=== PATIENT | male | born 1980 | race Asian ===

== ENCOUNTER 2024-02-07 19:26 | Emergency (ER) | payer OTHER ==
[~2024-02-07] VITALS: Ht 162.6 cm; Wt 70.0 kg
[2024-02-07] MEDS ORDERED: ACETAMINOPHEN 325 MG TAB PO ONE (19:45)
[2024-02-07] MEDS ORDERED: SODIUM CHLORIDE 0.9% 1,000 ML IV ONE (19:45)
[2024-02-07] MEDS ORDERED: MORPHINE SULFATE 4 MG/ML VIAL IV ONE (19:45)
[2024-02-07 19:53] LABS: HEMATOCRIT 45.5 % (35.0-50.0); HEMOGLOBIN 15.1 g/dL (12.0-18.0); MCH 29.1 (27-36); MCHC 33.3 g/dl (30-36); MCV 87.3 fl (81-99); PLATELET COUNT 431 K/uL (140-440); RBC 5.21 M/ul (4.3-5.7); RDW 13.8 (10.5-15.0)
[2024-02-07 20:02] LABS: INR 1.03 (0.80-1.30); PROTIME 13.1 Sec (11.2-14.2)
[2024-02-07 20:09] LABS: BANDS, MANUAL DIFF 1; BASOPHILS, MANUAL DIFF 1; LYMPHOCYTES, MANUAL DIFF 15; MONOCYTES, MANUAL DIFF 4; NEUTROPHILS, MANUAL DIFF 79
[2024-02-07 20:10] LABS: ALBUMIN/GLOBULIN RATIO 0.65 (1.1-2.4); ANION GAP 16.2 (7-21); BILIRUBIN, TOTAL 2.4 ng/dL (0.2-1.0); BUN/CREATININE RATIO 14.61 (6.0-28.6); CALCIUM 8.3 mg/dL (8.5-10.1); CREATININE, SERUM 1.3 mg/dL (0.70-1.30); POTASSIUM 4.2 mmol/L (3.5-5.1); PROTEIN, TOTAL 7.6 g/dL (6.4-8.2)
[2024-02-07 20:13] LABS: LACTIC ACID, BLOOD 1.5 mmol/L (0.4-2.0)
[2024-02-07] MEDS ORDERED: CEFTRIAXONE/SODIUM CHLORIDE 2 GM/100 ML PIGGYBACK IV ONE (20:15)
[2024-02-07] MEDS ORDERED: COLCHICINE 0.6 MG TAB PO ONE ×2 (20:30→23:15)
[2024-02-07 20:53] LABS: BILIRUBIN, URINE NEGATIVE (negative); BLOOD/HGB, URINE SMALL (Negative); KETONE, URINE NEGATIVE (Negative); LEUK ESTERASE, URINE NEGATIVE (negative); NITRITE, URINE NEGATIVE (negative)
[2024-02-07 20:58] LABS: EPITHELIAL CELLS, URINE SQUAMOUS 1+ /lpf (0-1+)
[2024-02-07 20:59] LABS: BACTERIA, URINE RARE /hpf (negative); CASTS, URINE NONE SEEN \\lpf; CRYSTALS, URINE NONE SEEN (0-1+); REFLEX CULTURE, URINE No (No)
[2024-02-07 22:23] LABS: N. GONORRRHOEAE BY PCR NOT DETECTED (NOT DETECT)
[2024-02-07 22:41] LABS: VISCOSITY, SYNOVIAL FLUID VISCOUS
[2024-02-07 22:42] LABS: RBC, SYOVIAL FLUID 1222; WBC, SYNOVIAL FLUID 45555
[2024-02-07 22:55] LABS: MONONUCLEAR CELLS, SYNOVIAL FL 5; PMNS, SYNOVIAL FLUID 95
[2024-02-07] MEDS ORDERED: PREDNISONE20 MG PO (23:12)
[2024-02-07] MEDS ORDERED: HYDROCODON-ACE1 EA10 PO (23:14)
[2024-02-07] MEDS ORDERED: HYDROCODONE BIT/ACETAMINOPHEN 5/325 MG 1 TAB HOME.PACK PO ONE (23:30)
[2024-02-07 23:33] VITALS: BP 132/91
== END 2024-02-07 23:34 | disposition home or self-care (01) ==
LOC: ED 19:26
PROVIDERS: Family Medicine
DX: M10.9 Gout, unspecified (principal)
CPT/HCPCS: 36415; 51701; 73560; 73630; 80053; 81001; 83605; 84550; 85025; 85610; 85651; 86140; 87040; 89051; 89060; 99283-25; A9270; J0696; J7030

== ENCOUNTER 2025-04-17 08:03 | Observation (INO) | payer OTHER ==
[~2025-04-17] VITALS: Ht 162.6 cm; Wt 66.6 kg
[2025-04-17] VITALS (9 sets, daily range): BP systolic 104–149; BP diastolic 67–89
[~2025-04-17 08:03] MED LIST: HYDROCODON-ACE1 EA10 PO; PREDNISONE20 MG PO
[2025-04-17] MEDS ORDERED: MELOXICAM15 MG PO (08:24)
[2025-04-17] MEDS ORDERED: ICOSAPENT ETHYL1 GM PO (08:24)
[2025-04-17] MEDS ORDERED: ALLOPURINOL100 MG PO (08:25)
[2025-04-17] MEDS ORDERED: METFORMIN HCL500 M1 PO (08:25)
[2025-04-17] MEDS ORDERED: SODIUM CHLORIDE 0.9% 1,000 ML IV PRN ×2 (08:30→09:00)
[2025-04-17 08:35] LABS: BASOPHILS 0.3 % (0.2-1.2); EOSINOPHILS 0.1 % (0.8-7.0); LYMPHOCYTES 8.1 % (21.8-53.1); MCH 27.0 PG (25.7-32.2); MCHC 32.8 g/dL (32.3-36.5); MCV 82.3 fL (79.0-92.2); MONOCYTES 7.0 % (5.3-12.2); NEUTROPHILS 83.7 % (34.0-67.9); RBC 5.15 M/uL (4.63-6.08)
[2025-04-17 08:50] LABS: ALT (SGPT) 30.0 U/L (14-59); AST (SGOT) 16.0 U/L (15-37); GLOMERULAR FILTRATION RATE,EST 76.0 mL/min (>60); PROTEIN, TOTAL 8.0 g/dL (6.4-8.2); UREA NITROGEN 15.0 mg/dL (7-18)
[2025-04-17 08:56] LABS: INR 1.12 (0.80-1.30); PROTIME 14.0 Sec (11.2-14.2)
[2025-04-17] MEDS ORDERED: PIPERACILLIN/TAZOBACTAM 4.5 GM in SODIUM CHLORIDE 0.9% 100 ML IV ONE ×2 (09:00→14:15)
[2025-04-17 09:04] LABS: BLOOD/HGB, URINE MODERATE (Negative); KETONE, URINE NEGATIVE (Negative); LEUK ESTERASE, URINE NEGATIVE (negative); NITRITE, URINE NEGATIVE (negative)
[2025-04-17 09:11] LABS: CASTS, URINE NONE SEEN \\lpf; CRYSTALS, URINE NONE SEEN (0-1+); EPITHELIAL CELLS, URINE SQUAMOUS 2+ /lpf (0-1+)
[2025-04-17 09:12] LABS: BACTERIA, URINE 1+ /hpf (negative); REFLEX CULTURE, URINE No (No)
[2025-04-17 09:25] LABS: LACTIC ACID, BLOOD 1.1 mmol/L (0.4-2.0)
[2025-04-17] MEDS ORDERED: MORPHINE SULFATE 4 MG/ML VIAL IV ONE (10:00)
[2025-04-17] MEDS ORDERED: MORPHINE SULFATE 4 MG/ML VIAL IV PRN (10:15)
[2025-04-17] MEDS ORDERED: LACTATED RINGER'S 1,000 ML IV SCH ×3 (10:15→15:15)
--- NOTE | 2025-04-17 11:24 | NUR ---
PT ARRIVES TO MED-SURG ROOM 114 AT 1037 VIA STRETCHER, PT AMBULATES FROM STRETCHER TO BED WITH STEADY GAIT. VERBAL REPORT RECEIVED FROM LIDYA PEREA. VSS OBTAINED, LOW GRADE TEMP, TACHYCARDIA, TACHYPNIA, DENIES SOB OR CHEST PAIN, REPORTS ABD RLQ PAIN TOLERABLE AT THIS TIME. CALM, WATCHES TV. ADMISSION ASSESSMENT COMPLETE. LR CONTINUOUS INFUSION IN PROGRESS AT 125 ML/HR. PT ORIENTED TO ROOM, BED AND CALL LIGHT. CALL LIGHT IN REACH. NO REQUESTS AT THIS TIME.
[2025-04-17] MEDS ORDERED: SEVOFLURANE 250 ML BTL INH ONE (11:42)
[2025-04-17] MEDS ORDERED: ALLOPURINOL300 MG PO (11:56)
--- NOTE | 2025-04-17 12:53 | NUR ---
PATIENT LEFT FLOOR VIA BED WITH SURGERY RN ANTONINA.
--- NOTE | 2025-04-17 12:54 | NUR ---
pt off floor with surgery imani fonseca.
[2025-04-17] MEDS ORDERED: LIDOCAINE HCL 2% 5 ML SDV ONE (13:44)
[2025-04-17] MEDS ORDERED: fentaNYL citrate 100 MCG/2 ML VIAL ONE ×2 (13:45→14:52)
[2025-04-17] MEDS ORDERED: Ropivacaine HCl 0.5% 30 ML VIAL ONE (13:45)
[2025-04-17] MEDS ORDERED: ROCURONIUM BROMIDE 50 MG/5 ML SYR ONE (13:46)
[2025-04-17] MEDS ORDERED: DEXAMETHASONE SOD PHOS 4 MG/ML VIAL ONE (13:57)
[2025-04-17] MEDS ORDERED: ACETAMINOPHEN 1,000 MG/100 ML VIAL ONE (14:34)
[2025-04-17] MEDS ORDERED: NALOXONE HCL 0.4 MG SYR IV PRN (15:15)
[2025-04-17] MEDS ORDERED: ACETAMINOPHEN 325 MG TAB PO PRN (15:15)
[2025-04-17] MEDS ORDERED: HYDROmorphone HCL 1 MG/ML SYR IV PRN (15:15)
--- NOTE | 2025-04-17 15:28 | NUR ---
04/17/25 1528 Franchesca Topete 1504- PT PRESENTS TO PACU, SEMI العلي POSITION, NON REACTIVE TO STIMULUS. BREATHING EVEN AND NON LABORED WITH OPA AND HEAD POSITIONING, O2 AT 6L PER MASK. LR INFUSING TO LAC IV. ABD SOFT, NON DISTENDED. 3 LAP SITES WITH BANDAGES CDI. ALL MONITORS IN PLACE. 1512- PT CONTINUES TO REST, BP IN THE 80'S SYSTOLIC, CONTINUE TO MONITOR. NO SIGNS OF DISTRESS. 1521- 1ST LITER LR COMPLETED, 2ND LITER STARTED TO SUPPORT BP. 1522- PT WAKES ON OWN, TURNS HEAD SIDE TO SIDE. FOLLOWS INSTRUCTIONS TO REMOVE OPA. REORIENTED TO TIME AND PLACE. 1525- PT MOVED TO ROOM AIR, DENIES PAIN OR NAUSEA. RESTING INTERMITTENTLY, THEN WAKES SELF. LR INFUSING.
--- NOTE | 2025-04-17 16:00 | NUR ---
REPORTS RECEIVED FROM CEDRIC WEB CONTENT DIRECTOR. PATIENT BACK TO FLOOR. PATIENT IN BED WITH HOB RAISED, EYES CLOSED, CHEST RISE EVEN AND UNLABORED. PATIENT ROUSES TO VERBAL STIMULI. VSS, CPOX IN PLACE, O2 SAT 91 ON RA. 3 LAP SITES ON LOWER QUADRANT, DRESSINGS CDI. DENIES NAUSEA, REPORTS PAIN TOLERABLE. ABDOMEN MILDLY DISTENDED, ABDOMEN NON-TENDER WITH PALPATION. BOWEL TONES ACTIVE IN ALL QUADRANTS EXCEPT, HYPOACTIVE IN LEFT LOWER QUADRANT.
--- NOTE | 2025-04-17 17:17 | NUR ---
PATIENT IN BED, EYES OPEN, CHEST RISE EVEN AND UNLABORED. IV FLUID INFUSING WITHOUT DIFFICULTY. CALL LIGHT AND PERSONAL BELONGINGS IN REACH OF PATIENT. ICE AND SCDS IN PLACE. PATIENT DENIES CONCERNS. VITAL SIGNS AND ASSESMENT COMPLETE. DRESSINGS CDI.
--- NOTE | 2025-04-17 18:04 | NUR ---
PATIENT IN BED WITH HOB RAISED, EYES OPEN, CHEST RISE EVEN AND UNALBORED. CPOX, ICE, AND SCDS IN PLACE. PATIENT REPORTS 3/10 PAIN, DENIES NEED FOR PAIN MEDICATION AT THIS TIME. DRESSINGS CDI, BOWEL TONES ACTIVE. PATIENT DENIES NAUSEA. PATIENT DENIES CONCERNS AT THIS TIME. CALL LIGHT AND PERSONAL BELONGINGS IN REACH OF PATIENT.
--- NOTE | 2025-04-17 18:48 | NUR ---
PATIENT IN BED WITH HOB RAISED, EYES OPEN, CHEST RISE EVEN AND UNLABORED. CALL LIGHT AND PERSONAL BELONGINGS IN REACH OF PATIENT. IV FLUID INFUSIGN WITHOUT DIFFICULTY. SCDS, CPOX, AND ICE IN PLACE. VITAL SIGNS AND ASSESMENT COMPLETED. PATIENT DENIES CONCERNS AT THIS TIME.
--- NOTE | 2025-04-17 19:15 | NUR ---
REPORT RECEIVED FROM NAIF BOSE. pt RESTING IN THE BED WITH FAMILY IN THE ROOM. WATER REFRESHED. pt DENIES ANY OTHER NEEDS AT THIS TIME. CALL LIGHT WITHIN REACH.
--- NOTE | 2025-04-17 20:21 | NUR ---
CALL LIGHT ANSWERED. PT SBA TO BATHROOM. PT VOIDED AND ASSISTED BACK TO BED. VITALS AND I&O OBTAINED. PT STATES NO FURTHER NEEDS AT THIS TIME. CALL LIGHT WITHIN REACH.
--- NOTE | 2025-04-17 21:05 | NUR ---
IN RM TO DO ASSESSMENT. LAP SITES DRESSING CDI. BOWEL TONES ACTIVE. pt DENIES ANY OTHER NEEDS AT THIS TIME. CALL LIGHT WITHIN REACH. SCDS ON. IV ASSESSED, WNL.
--- NOTE | 2025-04-17 21:50 | NUR ---
IV ABX INFUSING PER ORDER. IVF INFUSING PER ORDER. pt BG CHECKED WITH A RESULT OF 182. pt STATES HE TAKES METFORMIN AT HOME AND DOESN'T CHECK HIS BG. THIS RN WILL RECHECK BG IN THE MORNING. pt DENIES ANY OTHER NEEDS AT THIS TIME. CALL LIGHT WITHIN REACH.
[2025-04-17] MEDS ORDERED: PIPERACILLIN/TAZOBACTAM 4.5 GM in SODIUM CHLORIDE 0.9% 100 ML IV SCH (22:00)
[2025-04-18] VITALS (8 sets, daily range): BP systolic 98–135; BP diastolic 65–89
--- NOTE | 2025-04-18 00:16 | NUR ---
pt CALLED TO USE THE BR. pt SBA FOR LINE/TUBE MANAGEMENT. ICE PACK REFRESHED. SCD'S ON. CPOX ON. IV INFUSING PER ORDER. pt DENIES ANY OTHER NEEDS AT THIS TIME. CALL LIGHT WITHIN REACH.
--- NOTE | 2025-04-18 01:48 | NUR ---
DENTAL SCHEDULER OBTAINED VITALS. NO NEW I&O AT THIS TIME. PT STATES NO NEEDS AND CALL LIGHT WITHIN REACH.
--- NOTE | 2025-04-18 03:22 | NUR ---
pt RESTING IN THE BED WITH EYES CLOSED. RR EVEN AND UNLABORED. CALL LIGHT WITHIN REACH.
--- NOTE | 2025-04-18 05:34 | NUR ---
pt CALLED AND WALKED BACK TO BED. pt STATED HIS PAIN IS TOLERABLE AT THIS TIME. LAP SITES CDI. pt DENEIS AN ICE PACK AT THIS TIME. CALL LIGHT WITHIN REACH.
--- NOTE | 2025-04-18 07:09 | NUR ---
VERBAL REPORT RECEIVED FROM LIDYA DYSON. PT RESTS IN BED WITH EYES CLOSED, RESP EVEN AND UNLABORED.
--- NOTE | 2025-04-18 07:48 | OR ---
[facility] [address] [facility] [place], [place] [address] Signed DATE OF OPERATION: 04/17/2025 SURGEON: Iza Ramirez DO PREOPERATIVE DIAGNOSIS: Acute appendicitis. POSTOPERATIVE DIAGNOSIS: Acute appendicitis. PROCEDURE: Laparoscopic appendectomy. ANESTHESIA: General. EBL: Minimal. DRAINS: None. COMPLICATIONS: None. DESCRIPTION OF PROCEDURE: The patient was brought to the operating room and placed in supine position. After induction of general endotracheal anesthesia, a TAP block was performed by Anesthesia and details were contained within the note. The abdomen was then sterilely shaved, prepped and draped in usual fashion. Utilizing a linear incision, a 5 mm length in subumbilical region was incised with a scalpel and a Veress needle was then placed intra-abdominally and the fluid flowed freely and the abdomen was then insufflated with 4 L of CO2 gas. Through a separate stab incision in the suprapubic region, a 5 mm disposable trocar was placed under direct visualization and a separate 12 mm disposable trocar was placed in the left lateral quadrant. General exploration was carried out. There was some evidence of purulence in the right gutter. The cecum was mobilized medially and the appendix was found to be retrocecal and the base was dissected and the mesoappendix was dissected utilizing Endo-ANASTASIA stapler device with a vascular load was placed to the base of the appendix and closed and fired. The appendix was placed in a bag and brought up through the 12 mm port, passed off the field. The entire region was Electronically Signed By: IZA RAMIREZ DO 04/18/25 0748 PATIENT NAME: LUIGI GANDHI THE OPERATIVE REPORT DATE OF : 82 REPORT #: [id number] PHYSICIAN: IZA RAMIREZ DO PCP: MARCIE RODRIGES DO REPORT IS CONFIDENTIAL AND NOT TO BE RELEASED WITHOUT AUTHORIZATION [facility] [address] [place], [place] [address] Signed then copiously irrigated and dried. The retrocecal was then further inspected. No further evidence of attachments to the remainder of appendix was noted. Residual appendix was noted. Some Vistaseal powder was sprayed in the base of the appendix and in the right gutter. The cecum was placed back in anatomic position. All instrumentation was removed. All gas was allowed to escape the abdominal cavity. Incision sites were thoroughly irrigated and dried and the fascia was closed thoroughly with interrupted 0 Vicryl in [id number] fashion at the 12 mm port and the skin was closed at all ports with 4-0 Monocryl in subcuticular fashion. Benzoin, Steri-Strips and sterile dressing was applied. The patient tolerated the procedure well and taken to recovery room in satisfactory condition. DO MICHAEL Verma/SENAITL /[id number] Copies: ~ Electronically Signed By: IZA RAMIREZ DO 04/18/25 0748 PATIENT NAME: LUIGI GANDHI THE OPERATIVE REPORT DATE OF : 82 REPORT #: [id number] PHYSICIAN: IZA RAMIREZ DO PCP: MARCIE RODRIGES DO REPORT IS CONFIDENTIAL AND NOT TO BE RELEASED WITHOUT AUTHORIZATION
[2025-04-18 08:01] LABS: BASOPHILS 0.1 % (0.2-1.2); EOSINOPHILS 0 % (0.8-7.0); LYMPHOCYTES 5.1 % (21.8-53.1); MCH 27.2 PG (25.7-32.2); MCHC 33.1 g/dL (32.3-36.5); MCV 82.2 fL (79.0-92.2); MONOCYTES 5.2 % (5.3-12.2); NEUTROPHILS 88.8 % (34.0-67.9); RBC 4.15 M/uL (4.63-6.08)
--- NOTE | 2025-04-18 08:48 | NUR ---
MED REC COMPLETE
--- NOTE | 2025-04-18 09:05 | NUR ---
PT SITS UP IN RECLINER, EATS BREAKFAST, TOLERATES THIS WELL. DENIES NAUSEA.
--- NOTE | 2025-04-18 09:34 | NUR ---
INTO SEE PATIENT. PERSONAL HEALTH INFORMATION REVIEWED. PATIENT LIVES IN A HOUSE. NO STEPS INTO THE HOME. DOES NOT USE ANY DME. DOES DRIVE. DENIES ANY DIFFCULTY PAYING UTILITIES OR OBTAINING FOOD. NO FUTHER CM NEEDS. DISHCARGE POTENTIALLY TODAY IF MEDICALLY CLEARED.
--- NOTE | 2025-04-18 09:59 | NUR ---
PATIENT IS IN HIS CHAIR AT THIS TIME, TEACHER SELECTION SPECIALIST CHARTED VITALS AND I&O'S, CHANGED BEDDING, CALL LIGHT WITH IN REACH AND NOTHING ELSE NEEDED AT THIS TIME.
[2025-04-18] MEDS ORDERED: HYDROCODONE/ACETA 7.5/325 TAB PO PRN (13:00)
--- NOTE | 2025-04-18 13:27 | NUR ---
PT SITS UP IN RECLINER, EATS 90% OF LUNCH, TOLERATES THIS WELL. DENIES NAUSEA. CALL LIGHT IN REACH. PT WATCHES TV.
--- NOTE | 2025-04-18 14:47 | NUR ---
UR CLINICAL REVIEW: NILAY, MEETS OBS FOR APPENDICITIS APPENDECTOMY 04/17/25 WITH LOW BLOOD PRESSURES POST OP IV FLUIDS, IV ANTIBIOTICS, TREND LABS, SLOWLY ADVANCE DIET [facility]BS 04/17/2025 @ 1013 ORDER MATCHES REG AUTH PENDING. WILL SEND CLINICALS IF REQUESTED PLAN TO DC TO HOME WHEN WBC NORMALIZE 04/19/2025
--- NOTE | 2025-04-18 15:04 | NUR ---
PT REPORTS PAIN IN ABDOMEN 4/10, TOLERABLE AT THIS TIME. REFUSES OFFER OF INTERVENTION. RESTS IN BED, WATCHES PHONE AND TV, CALL LIGHT IN REACH, NO REQUESTS AT THIS TIME.
--- NOTE | 2025-04-18 15:12 | NUR ---
ABDOMEN MILDLY DISTENDED, BT ACTIVE X4 QUADRANTS, DRESSINGS X3 TO LLQ C/D/I. PT REPORT FLATUS. DENIES NAUSEA. TOLERATING REGULAR DIET WELL.
--- NOTE | 2025-04-18 16:35 | NUR ---
VERBAL REPORT PROVIDED TO LIDYA SORENSEN.
--- NOTE | 2025-04-18 18:20 | NUR ---
pt sitting on the side of bed eating dinner, denies needs. call light in reach.
--- NOTE | 2025-04-18 18:48 | NUR ---
PATIENT IS IN BED AT THIS TIME WATCHING TV, GRINDER SET UP OPERATOR THREAD TOOL CHARTED VITALS AND I&O'S, CALL LIGHT WIHT IN REACH AND NOTHING ELSE NEEDED AT THIS TIME.
--- NOTE | 2025-04-18 19:32 | NUR ---
RECEIVED REPORT. PT ALERT IN BED, TALKING ON PHONE. CALL LIGHT IN REACH
--- NOTE | 2025-04-18 21:10 | NUR ---
ROUNDED ON PT, DENIES PAIN OR OTHER NEEDS FOR NOW. CALL LIGHT IN REACH
--- NOTE | 2025-04-18 21:16 | NUR ---
SLD EDUCATIONAL AIDE OBTAINED VITALS AND I&O. PT STATES NO NEEDS AT THIS TIME. CALL LIGHT WITHIN REACH.
--- NOTE | 2025-04-18 22:30 | NUR ---
ASSESSMENT, EVENING MEDS. PT RATES PAIN 2-3/10. GIVEN PRN TYLENOL TO GOOD EFFECT. REPORTS SOME LOOSE BOWEL MOVEMENTS AFTER SURGERY, BUT DENIES NAUSEA/VOMITING. NO OTHER NEEDS FOR NOW, [facility]
--- NOTE | 2025-04-19 00:19 | NUR ---
PT ALERT IN BED, NO NEEDS FOR NOW. CALL LIGHT IN REACH
--- NOTE | 2025-04-19 01:18 | NUR ---
PT RESTING IN BED WITH EYES CLOSED, RISE AND FALL OF CHEST OBSERVED. ROBERTA LGIHT INREACH
--- NOTE | 2025-04-19 03:00 | NUR ---
PT RESTING IN BED WITH EYES CLOSED, RISE AND FALL OF CHEST OBSERVED. [facility]
--- NOTE | 2025-04-19 04:38 | NUR ---
PT RESTING IN BED WITH EYES CLOSED, RISE AND FALL OF CHEST OBSERVED. [facility]
[2025-04-19 05:52] VITALS: BP 140/92
--- NOTE | 2025-04-19 05:54 | NUR ---
FOOD CLERK OBTAINED VITALS AND I&O. PT STATES NO NEEDS AT THIS TIME. CALL LIGHT WITHIN REACH.
--- NOTE | 2025-04-19 06:00 | NUR ---
PT UP IN CHAIR. AM MEDS, GIVEN PRN NORCO FOR 5-6/10 PAIN. PT REPORTS HE SLEPT WELL OVERNIGHT. REFRESHED ICE WATER, NO FURTHER NEEDS. CALL LIGHT IN REACH
[2025-04-19 08:03] LABS: BASOPHILS 0.4 % (0.2-1.2); EOSINOPHILS 0.7 % (0.8-7.0); LYMPHOCYTES 15.1 % (21.8-53.1); MCH 26.9 PG (25.7-32.2); MCHC 32.4 g/dL (32.3-36.5); MCV 83.0 fL (79.0-92.2); MONOCYTES 8.5 % (5.3-12.2); NEUTROPHILS 74.9 % (34.0-67.9); RBC 4.05 M/uL (4.63-6.08)
[2025-04-19 10:00] VITALS: BP 127/86
[2025-04-19 10:07] VITALS: BP 127/86
--- NOTE | 2025-04-19 10:08 | NUR ---
Patient awake sitting up in chair, no acute distress. Patient reports tolerable abdominal pain, no nausea. Patient has active bowel tones x4 quadrants, he reports passing flatus. Abdominal surgical dressing has small amount of dried blood noted. No current needs, personal supplies and call light within reach.
--- NOTE | 2025-04-19 10:46 | NUR ---
INTO SEE PATIENT. PATIENT STATES HE A OLLIE AND IS HOPING FOR DISCHARGE. PATIENT HAS A RIDE FROM FAMILY WHEN MEDICALLY CLEARED BY DOCTOR. NO FUTHER CM NEEDS.
[2025-04-19] MEDS ORDERED: HYDROCODON-ACE1 EA11 PO (11:51)
[2025-04-19] MEDS ORDERED: LEVOFLOXACIN500 MG PO (11:51)
--- NOTE | 2025-04-19 12:20 | NUR ---
Admin norco 7.5/325mg po for reports of 4/10 incisional pain.
--- NOTE | 2025-04-19 15:43 | PATH ---
[facility] [address], [place] [address] Signed SPECIMEN(S): A APPENDIX SPECIMEN SOURCE: A. APPENDIX CLINICAL HISTORY: Acute appendicitis FINAL PATHOLOGIC DIAGNOSIS: Appendix, appendectomy: - Acute appendicitis with focal periappendicitis and serositis. JVR:[facility] MICROSCOPIC EXAMINATION: Histologic sections of all submitted blocks are examined by light microscopy. These findings, together with the gross examination, support the pathologic diagnosis. GROSS DESCRIPTION: The specimen, labeled and designated "Le, T., appendix," is received in formalin and consists of Specimen: Appendix with mesoappendix. Dimensions: 3 x 0.7 x 0.7 cm. Serosa: Merida-pink with diffuse areas of purulent material present. Defect: Not grossly identified. Inking: Staple line is inked Blue. Mucosa: Merida-pink and pinpoint. Fecalith: Not grossly identified. Additional: None. Entirely submitted in (A1). AA (under the direct supervision of a pathologist) The Gross Description was prepared using a voice recognition system. The report was reviewed for accuracy; however, sound-alike word errors, addition and/or deletions may occur. If there is any question about this report, please contact Client Services. PERFORMING LABORATORY: Technical component was performed by [facility], [address] [place] [id number] (CLIA# [id number]). Professional interpretation was performed by [facility], [address] [place] [address], [place] [address] (CLIA#: [id number]). PATIENT NAME: LUIGI GANDHI THE PATHOLOGY DATE OF : 82 REPORT #: [id number] PHYSICIAN: [facility] PCP: MARCIE RODRIGES DO REPORT IS CONFIDENTIAL AND NOT TO BE RELEASED WITHOUT AUTHORIZATION [facility] [address] [place] [address] [place] [address] Signed Diagnostician: Santos Sullivan MD Pathologist Electronically Signed 04/19/2025 Copies: ~ PATIENT NAME: LUIGI GANDHI THE PATHOLOGY DATE OF : 82 REPORT #: [id number] PHYSICIAN: [facility] PCP: MARCIE RODRIGES DO REPORT IS CONFIDENTIAL AND NOT TO BE RELEASED WITHOUT AUTHORIZATION
== END 2025-04-19 12:40 | disposition home or self-care (01) ==
LOC: ED 08:03 → MS 08:05
PROVIDERS: Emergency Medicine; ADMIT Surgery; ATTEND Surgery
PROC: 0DTJ4ZZ Resection of Appendix, Percutaneous Endoscopic Approach (ICD-10-PCS; principal; 2025-04-17 12:35)
DX: K35.30 Acute appendicitis with localized peritonitis, without perforation or gangrene (principal); E11.9 Type 2 diabetes mellitus without complications; M10.9 Gout, unspecified; Z79.1 Long term (current) use of non-steroidal anti-inflammatories (NSAID); Z79.84 Long term (current) use of oral hypoglycemic drugs; Z79.899 Other long term (current) drug therapy
CPT/HCPCS: 00840; 36415; 74177; 76942; 80053; 81001; 83605; 83690; 85025; 85060; 85610; 85730; 87040; 94762; 96361; 96365; 96375; 96376; 99285-25; A9270; G0378; J0131; J1100; J2003; J2270; J2405; J2543; J2704; J2795; J3010; J3490; J7030; J7121; Q9967